=== PATIENT | male | born 1980 | race Caucasian/White ===

== ENCOUNTER 2018-06-23 07:41 | Emergency (ER) | payer BC ==
[2018-06-23] MEDS: SOD CHLORIDE 0.9% 1,000 ML IV (08:07)
[2018-06-23] MEDS: METOCLOPRAMIDE 10 MG INJ IV (08:07)
[2018-06-23] MEDS: KETOROLAC 30 MG INJ IV (08:08)
[2018-06-23 08:23] LABS: ADD MAN DIFF? NO
[2018-06-23 08:29] LABS: WHITE BLOOD COUNT 8.2 10^3/ul (4.8-10.8)
[2018-06-23 08:29] LABS: BASOPHIL # 0.1 10^3/ul (0.0-0.1); BASOPHILS % 0.7 % (0.0-2.0); EOSINOPHILS # 0.2 10^3/ul (0.0-0.5); HEMATOCRIT 48.8 % (42.0-52.0); HEMOGLOBIN 16.3 g/dl (14.0-18.0); LYMPHOCYTES # 1.9 10^3/ul (0.8-2.9); LYMPHOCYTES % 23.8 % (15.0-51.0); MEAN CORPUSCULAR HEMOGLOBIN 28.5 pg (29.0-33.0); MEAN CORPUSCULAR HGB CONC 33.4 g/dl (32.0-37.0); MEAN CORPUSCULAR VOLUME 85.3 fl (82.0-101.0); MONOCYTE # 0.4 10^3/ul (0.3-0.9); MONOCYTES % 5.4 % (0.0-11.0); NEUTROPHIL # 5.5 10^3/ul (1.6-7.5); NEUTROPHILS % 67.7 % (39.0-77.0); PLATELET COUNT 283 10^3/UL (140-415); RED BLOOD COUNT 5.72 10^6/ul (4.70-6.10); RED CELL DISTRIBUTION WIDTH 12.3 % (11.5-14.5)
[2018-06-23 08:53] LABS: ALANINE AMINOTRANSFERASE 71 IU/L (13-69); ALBUMIN 4.6 g/dl (3.3-4.9); ALBUMIN/GLOBULIN RATIO 1.48; ALKALINE PHOSPHATASE 98 IU/L (42-121); ANION GAP 16 (8-16); ASPARTATE AMINO TRANSFERASE 42 IU/L (15-46); BILIRUBIN,INDIRECT 0.6 mg/dl (0-1.1); BILIRUBIN,TOTAL 0.6 mg/dl (0.2-1.3); BLOOD UREA NITROGEN 11 mg/dl (7-20); CALCIUM 9.7 mg/dl (8.4-10.2); CARBON DIOXIDE 29 mmol/L (21-31); CHLORIDE 104 mmol/L (97-110); CREATININE 0.85 mg/dl (0.61-1.24); GLUCOSE 110 mg/dl (70-220); POTASSIUM 4.5 mmol/L (3.5-5.1); SODIUM 144 mmol/L (135-144); TOTAL PROTEIN 7.7 g/dl (6.1-8.1)
== END 2018-06-23 09:12 | disposition home or self-care (01) ==
LOC: FTE 07:41
DX: R42 Dizziness and giddiness (principal)
CPT/HCPCS: 36415; 80053; 85025; 96361; 96374; 96375; 99284-25